=== PATIENT | female | born 1940 | race Caucasian/White ===

== ENCOUNTER 2024-01-12 08:31 | Emergency (ER) | payer BC, MEDICARE, OTHER ==
[2024-01-12] MEDS: Sodium Chloride 0.9% 1,000 ML IV SCH (09:04)
[2024-01-12 09:13] LABS: BASOPHILS PERCENT AUTO 0.5 % (0.2-1.5); EOSINOPHILS PERCENT AUTO 0.2 % (0.6-8.1); HEMOGLOBIN 11.1 g/dL (11.4-15.5); LYMPHOCYTES ABSOLUTE AUTO 0.7 x10-3/uL (1.0-4.4); LYMPHOCYTES PERCENT AUTO 11.5 % (18.4-52.1); MEAN CORPUSCULAR HEMOGLOBIN 28.7 pg (23.9-33.9); MEAN CORPUSCULAR HGB CONC 31.7 g/dL (31.9-34.8); MEAN CORPUSCULAR VOLUME 90.6 fL (76.7-100.5); MEAN PLATELET VOLUME 7.6 fL (7.1-12.4); MONOCYTES ABSOLUTE AUTO 0.6 x10-3/uL (0.3-1.0); MONOCYTES PERCENT AUTO 9.4 % (4.4-15.7); NEUTROPHILS ABSOLUTE AUTO 4.7 x10-3/uL (1.5-6.3); NEUTROPHILS PERCENT AUTO 78.4 % (30.8-76.2); PLATELET COUNT,PLT 193 x10(3)uL (151-488); RED BLOOD CELL COUNT 3.87 x10(6)uL (3.60-5.20)
[2024-01-12 09:19] LABS: BLOOD UREA NITROGEN,BUN 17 mg/dL (7-18); CALCIUM 8.4 mg/dL (8.6-10.2); CARBON DIOXIDE,CO2 27 mmol/L (21-32); CHLORIDE,CL 104 mmol/L (100-110); EST CRCL DRUG DOSING (CG) 39.68 mL/min; ESTIMATED GFR 56 mL/min (>60); GLUCOSE RANDOM 126 mg/dL (80-116); POTASSIUM,K 4.2 mmol/L (3.5-5.3); SODIUM,NA 139 mmol/L (135-145)
[2024-01-12 09:25] LABS: A/G RATIO 0.9; ALANINE AMINOTRANSFERASE,ALT 49 U/L (12-36); ALBUMIN 3.3 g/dL (3.2-4.6); ALKALINE PHOSPHATASE 118 IU/L (56-112); ASPARTATE AMNIOTRANSFERASE,AST 56 IU/L (5-25); BILIRUBIN TOTAL 0.6 mg/dL (0.1-1.3); PROTEIN TOTAL,TP 7.2 g/dL (6.0-8.0)
[2024-01-12 10:41] LABS: INFLUENZA A NAA NEGATIVE (NEGATIVE); INFLUENZA B NAA NEGATIVE (NEGATIVE); RESPIRATORY SYNCYTIAL VIR NAA NEGATIVE (NEGATIVE)
[2024-01-12 10:43] LABS: CORONAVIRUS COVID-19 NAA NEGATIVE (NEGATIVE)
[2024-01-12 11:19] LABS: BILIRUBIN,URINE NEGATIVE (NEGATIVE); GLUCOSE,URINE NORMAL (NORMAL); KETONES,URINE NEGATIVE (NEGATIVE); LEUKOCYTE ESTERASE,URINE SMALL (NEGATIVE); NITRITE,URINE NEGATIVE (NEGATIVE); OCCULT BLOOD,URINE LARGE (NEGATIVE); PROTEIN,URINE TRACE mg/dL (NEGATIVE); UROBILINOGEN,URINE NORMAL (NEGATIVE)
[2024-01-12 11:26] LABS: APPEARANCE,URINE CLEAR (CLEAR); BACTERIA,URINE FEW (NS); COLOR,URINE YELLOW (YELLOW); RBC,URINE 0-5 (0-5); SQUAMOUS EPITHELIAL CELLS,UR RARE (NS,R,O); WBC,URINE 0-5 (0-5)
[2024-01-12] MEDS: Furosemide 40 MG/4 ML VIAL IVPUSH ONE (12:11)
[2024-01-12] MEDS: Potassium Chloride 20 MEQ Tab.ER PO ONE (12:59)
== END 2024-01-12 13:05 | disposition home or self-care (01) ==
LOC: FB.ED 08:31
DX: G30.9 Alzheimer's disease, unspecified (principal); F02.C18 Dementia in other diseases classified elsewhere, severe, with other behavioral disturbance; I50.9 Heart failure, unspecified; Z88.8 Allergy status to other drugs, medicaments and biological substances; Z79.82 Long term (current) use of aspirin; Z79.899 Other long term (current) drug therapy
CPT/HCPCS: 0241U; 36415; 70450; 71046; 80053; 81001; 83880; 84443; 85025; 96361; 96374; 99285; A9270; J1940; J7030

== ENCOUNTER 2024-05-03 17:17 | Emergency (ER) | payer MEDICARE, OTHER ==
[2024-05-03] MEDS ORDERED: Sodium Chloride 0.9% 10 ML Syringe FLUSH PRN (17:25)
[2024-05-03 17:49] LABS: BASOPHILS PERCENT AUTO 0.2 % (0.2-1.5); EOSINOPHILS ABSOLUTE AUTO 0.1 x10-3/uL (0.0-0.8); EOSINOPHILS PERCENT AUTO 1.2 % (0.6-8.1); HEMATOCRIT 38.9 % (34.2-48.2); HEMOGLOBIN 12.5 g/dL (11.4-15.5); LYMPHOCYTES ABSOLUTE AUTO 0.8 x10-3/uL (1.0-4.4); LYMPHOCYTES PERCENT AUTO 15.6 % (18.4-52.1); MEAN CORPUSCULAR HEMOGLOBIN 27.2 pg (23.9-33.9); MEAN CORPUSCULAR HGB CONC 32.2 g/dL (31.9-34.8); MEAN CORPUSCULAR VOLUME 84.6 fL (76.7-100.5); MEAN PLATELET VOLUME 7.3 fL (7.1-12.4); MONOCYTES ABSOLUTE AUTO 0.4 x10-3/uL (0.3-1.0); MONOCYTES PERCENT AUTO 7.7 % (4.4-15.7); NEUTROPHILS ABSOLUTE AUTO 3.9 x10-3/uL (1.5-6.3); NEUTROPHILS PERCENT AUTO 75.3 % (30.8-76.2); PLATELET COUNT,PLT 227 x10(3)uL (151-488); RED BLOOD CELL COUNT 4.59 x10(6)uL (3.60-5.20); RED CELL DISTRIBUTION WIDTH 16.8 % (12.3-16.5); WHITE BLOOD CELL COUNT,WBC 5.2 x10-3/uL (3.0-10.3)
[2024-05-03 17:54] LABS: BLOOD UREA NITROGEN,BUN 18 mg/dL (7-18); CALCIUM 8.6 mg/dL (8.6-10.2); CARBON DIOXIDE,CO2 25 mmol/L (21-32); CHLORIDE,CL 102 mmol/L (100-110); ESTIMATED GFR 56 mL/min (>60); GLUCOSE RANDOM 133 mg/dL (80-116); POTASSIUM,K 4.1 mmol/L (3.5-5.3); SODIUM,NA 137 mmol/L (135-145)
[2024-05-03 18:00] LABS: ALANINE AMINOTRANSFERASE,ALT 14 U/L (12-36); ALBUMIN 3.8 g/dL (3.2-4.6); ALKALINE PHOSPHATASE 112 IU/L (56-112); ASPARTATE AMNIOTRANSFERASE,AST 19 IU/L (5-25); BILIRUBIN TOTAL 0.5 mg/dL (0.1-1.3); PROTEIN TOTAL,TP 7.8 g/dL (6.0-8.0)
[2024-05-03 18:07] LABS: LACTIC ACID 1.3 mmol/L (0.4-2.0)
[2024-05-03 18:13] LABS: C-REACTIVE PROTEIN < 0.50 mg/dL (<0.50); PRO B-TYPE NATRIUR PEPT,BNPPRO 3384 pg/mL (<=450)
== END 2024-05-03 18:50 | disposition home or self-care (01) ==
LOC: FB.ED 17:17
DX: S06.0XAA Concussion with loss of consciousness status unknown, initial encounter (principal); F02.C18 Dementia in other diseases classified elsewhere, severe, with other behavioral disturbance; G30.9 Alzheimer's disease, unspecified; I50.9 Heart failure, unspecified; Z88.8 Allergy status to other drugs, medicaments and biological substances; Z79.82 Long term (current) use of aspirin; Z79.899 Other long term (current) drug therapy; Z79.01 Long term (current) use of anticoagulants; W19.XXXA Unspecified fall, initial encounter; Y93.89 Activity, other specified
CPT/HCPCS: 36415; 70450; 80053; 83605; 83880; 85025; 86140; 93005; 99285